=== PATIENT | female | born 2000 | race Two or more races ===

== ENCOUNTER 2022-03-01 18:22 | Emergency (ER) | payer MEDICAID, OTHER ==
[~2022-03-01] VITALS: Ht 160 cm; Wt 60.8 kg
[2022-03-01] MEDS ORDERED: PRED20TA2 PO (19:51)
[2022-03-01] MEDS: DexAMETHasone SOD PHOS 10MG/1ML VIAL INJ IM ONE (21:27)
[2022-03-01 21:35] VITALS: BP 107/86
== END 2022-03-01 21:44 | disposition home or self-care (01) ==
LOC: ER 18:22
DX: M32.9 Systemic lupus erythematosus, unspecified (principal); M79.10 Myalgia, unspecified site
CPT/HCPCS: 96372; 99283; J1100